=== PATIENT | female | born 1990 | race American Indian/Alaskan Native ===

== ENCOUNTER 2018-10-09 15:23 | Outpatient (CLI) | payer MEDICAID ==
[2018-10-09] MEDS ORDERED: LACTATED RINGERS 500 ML IV ONE (15:44)
[2018-10-09 15:47] VITALS: BP 100/60
[2018-10-09 16:35] LABS: Bacteria,Urine 2+ /HPF (Negative); Bilirubin,Urine NEG (Negative); Blood,Urine LG (Negative); Color,Urine Yellow (Yellow); Mucus,Urine 2+ /HPF; Protein,Urine <15 mg/dL mg/dL (Negative); Urobilinogen,Urine < 2.0 mg/dL (<2.0)
[2018-10-09 16:37] LABS: WBC,Urine > 182.0 /HPF (0.0-6.0)
[2018-10-09] MEDS ORDERED: ceFAZolin 2 GM in NACL 0.9% 100 ML IV ONE (17:30)
== END 2018-10-09 18:02 | disposition home or self-care (01) ==
LOC: TRG 15:23
PROVIDERS: ATTEND Obstetrics & Gynecology
DX: O47.02 False labor before 37 completed weeks of gestation, second trimester (principal); O26.892 Other specified pregnancy related conditions, second trimester; R10.2 Pelvic and perineal pain; Z3A.23 23 weeks gestation of pregnancy
CPT/HCPCS: 59025; 81001; 96365; J0690

== ENCOUNTER 2019-02-10 08:45 | Inpatient (IN) | payer MEDICAID ==
[2019-02-10] MEDS ORDERED: SUBLIMAZE IV PRN (09:54)
[2019-02-10] MEDS ORDERED: MINERAL OIL PO PRN (09:54)
[2019-02-10] MEDS ORDERED: BRETHINE IVP PRN (09:54)
[2019-02-10] MEDS ORDERED: XYLOCAINE 2% INFILTRATI ONE (09:54)
[2019-02-10] MEDS ORDERED: ZOFRAN IV PRN ×2 (09:54→20:12)
[2019-02-10] MEDS ORDERED: BRETHINE SUB-Q PRN (09:54)
[2019-02-10] MEDS ORDERED: PITOCin/NS 30 UNIT/500ML 30 UNITS/500 ML BAG IV SCH (10:00)
[2019-02-10] MEDS ORDERED: PITOCin/NS 20 UNIT/1000ML DRIP 20 UNITS/1,000 ML BAG IV SCH (10:00)
[2019-02-10 10:32] LABS: Hematocrit 30.6 % (30.3-42.9); Hemoglobin 9.9 gm/dl (10.1-14.3); Mean Corpuscular HGB Conc 33 % (30-34); Red Cell Distribution Width 18.7 % (13.2-15.2)
[2019-02-10 10:37] LABS: Mean Corpuscular Volume 68 fl (79-97)
[2019-02-10] MEDS: LACTATED RINGERS 1,000 ML IV SCH ×2 (10:49→13:52)
[2019-02-10] MEDS: STADOL IV PRN ×2 (10:49→13:50)
[2019-02-10 14:44] LABS: Platelet Count 152 K/mm3 (140-440)
--- NOTE | 2019-02-10 17:41 | History and Physical Report ---
History of Present Illness Date of examination: 02/10/19 Date of admission: 02/10/19 08:47 Chief complaint: I'm having contractions History of present illness: Pt is a 28 year old who presents in active labor at 40.5 weeks. Her course has been uncomplicated. Her GBS is negative. 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 Family/Genetic History: none Social history: - Obstetrical History Expected Date of Delivery: 02/04/19 Actual Gestation: 40 Week(s) 6 Day(s) : 6 Para: 3 Spontaneous Abortions: 2 Number of Living Children: 3 Medications and Allergies Allergies Allergy/AdvReac Type Severity Reaction Status Date / Time No Known Allergies Allergy Verified 10/09/18 15:43 Home Medications Medication Instructions Recorded Confirmed Last Taken Type No Known Home Medications [No 02/10/19 02/10/19 Unknown History Reported Home Medications] Active Meds: Active Medications Butorphanol Tartrate (Stadol) 2 mg IV Q2H PRN PRN Reason: Labor Pain Last Admin: 02/10/19 13:50 Dose: 2 mg Documented by: Ephedrine Sulfate (Ephedrine Sulfate) 10 mg IV Q2M PRN PRN Reason: Hypotension Fentanyl (Sublimaze) 100 mcg IV Q2H PRN PRN Reason: Labor Pain Last Admin: 02/10/19 16:48 Dose: 100 mcg Documented by: Oxytocin/Sodium Chloride (Pitocin/Ns 20 Unit/1000ml Drip) 20 units in 1,000 mls @ 125 mls/hr IV DIRECT THEO Oxytocin/Sodium Chloride (Pitocin/Ns 30 Unit/500ml) 30 units in 500 mls @ 1 mls/hr IV TITR THEO; Protocol Lactated Ringer's (Lactated Ringers) 1,000 mls @ 125 mls/hr IV DIRECT THEO Last Admin: 02/10/19 13:52 Dose: 125 mls/hr Documented by: Mineral Oil (Mineral Oil) 30 ml PO QHS PRN PRN Reason: Constipation Ondansetron HCl (Zofran) 4 mg IV Q8H PRN PRN Reason: Nausea And Vomiting Last Admin: 02/10/19 10:50 Dose: 4 mg Documented by: Terbutaline Sulfate (Brethine) 0.25 mg SUB-Q ONCE PRN PRN Reason: Hyperstimulation/Hypertonicity Terbutaline Sulfate (Brethine) 0.25 mg IVP ONCE PRN PRN Reason: Hyperstimulation/Hypertonicity Review of Systems All systems: negative Genitourinary: contractions Rectal Exam: deferred - Vital Signs Vital signs: Vital Signs Pulse BP Pulse Ox 109 H 121/79 99 02/10/19 09:07 02/10/19 09:07 02/10/19 09:07 Temp Pulse Resp BP Pulse Ox 98.7 F 101 H 120/77 96 02/10/19 16:05 02/10/19 17:35 02/10/19 17:35 02/10/19 13:49 - Physical Exam Breasts: Cardiovascular: Regular rate, Normal S1, Normal S2 Lungs: Positive: Clear to auscultation, Normal air movement Abdomen: Positive: normal appearance, soft, normal bowel sounds. Negative: distention, tenderness Vulva: both: normal Vagina: Positive: normal moisture. Negative: discharge Cervix: Negative: lesion, discharge Uterus: Positive: normal size, normal contour Adnexa: both: normal Anus/Rectum: Positive: normal perianal skin, heme negative. Negative: rectal mass, hemorrhoids Extremities: Positive: normal Deep Tendon Reflex Grade: Normal +2 - Obstetrical FHR: auscultation normal Cervical Dilatation: 3 Cervical Effacement Percentage: 90 station: 0 Uterine Contraction Pattern: Regular Uterine Tone Measurement Phase: Contraction Uterine Contraction Intensity: Moderate Results Result Diagrams: 02/10/19 10:15 Abnormal lab results 02/10/19 Range/Units 10:15 Hgb 9.9 L (10.1-14.3) gm/dl MCV 68 L (79-97) fl MCH 22 L (28-32) pg RDW 18.7 H (13.2-15.2) % All other labs normal. Assessment and Plan IUP at 40.6 weeks in active labor. Admit to LABOR. Arom when needed. Pt does not want epidural. Anticipate .
--- NOTE | 2019-02-10 17:46 | Procedure Note ---
OB Delivery Note - Delivery Date of Delivery: 02/10/19 Surgeon: LUCA CHERRY Estimated blood loss: 300cc - Vaginal Delivery presentation: vertex Delivery position: OA Intrapartum events: none Delivery induction: none Delivery monitor: external FHT, external uterine Route of delivery: Delivery placenta: spontaneous Delivery cord: 3 umbilical vessels Delivery laceration: none Anesthesia: none Delivery comments: Viable male delivered over intact perineum in OP presentation. Placed on maternal abdomen. Weight 9 pounds 2 ounces. Apgars 8,9. No lacerations. Pt tolerated procedure well. - A at 1 minute: 8 at 5 minutes: 9 Infant Gender: Male
[2019-02-10] MEDS ORDERED: BENADRYL PO PRN (20:12)
[2019-02-10] MEDS ORDERED: TYLENOL PO PRN (20:12)
[2019-02-10] MEDS ORDERED: TUCKS PAD TP PRN (20:12)
[2019-02-10] MEDS ORDERED: MILK OF MAGNESIA PO PRN (20:12)
[2019-02-10] MEDS ORDERED: TORADOL IV PRN (20:12)
[2019-02-10] MEDS ORDERED: SODIUM CHLORIDE FLUSH SYRINGE 10 ML IV NR (20:12)
[2019-02-10] MEDS ORDERED: DULCOLAX PR PRN (20:12)
[2019-02-10] MEDS ORDERED: PHENERGAN PR PRN (20:12)
[2019-02-10] MEDS ORDERED: LANSINOH TP PRN (20:12)
[2019-02-10] MEDS ORDERED: PHENERGAN PO PRN (20:12)
[2019-02-10] MEDS: IBUPROFEN PO SCH (20:30)
[2019-02-11] MEDS: IBUPROFEN PO SCH ×4 (04:57→17:28)
[2019-02-11 07:34] LABS: Hematocrit 24.1 % (30.3-42.9); Hemoglobin 7.7 gm/dl (10.1-14.3)
[2019-02-11] MEDS: NORCO 5/325 PO PRN ×2 (08:56→15:58)
[2019-02-11] MEDS: PRENATAL VITAMIN PO SCH (10:07)
[2019-02-11] MEDS: COLACE PO SCH ×2 (10:07→22:24)
--- NOTE | 2019-02-11 15:26 | Progress Note ---
Assessment and Plan PPD 1 S/P . DOING WELL. PT ATTEMPTED TO BREASTFEED, THEN STOPPED. PT TO BE DISCHARGED ON TOMORROW. Subjective - Subjective Date of service: 02/11/19 Interval history: Pt is a 28 year old who presents in active labor at 40.5 weeks. Her pren atal course has been uncomplicated. Her GBS is negative. Patient reports: appetite normal, voiding normally, pain well controlled, ambulating normally [place]: doing well Objective - Vital Signs Latest vital signs: Vital Signs Temp Pulse Resp BP Pulse Ox 02/11/19 12:11 98.5 F 99 H 16 107/62 96 02/11/19 07:27 98.8 F 103 H 20 100/56 98 02/11/19 04:54 99.2 F 109 H 18 95/56 97 02/11/19 00:31 97.7 F 86 18 106/66 100 02/10/19 20:30 18 02/10/19 19:37 98.2 F 86 18 107/61 98 02/10/19 18:05 101 H 115/77 02/10/19 18:00 99 H 122/75 02/10/19 17:55 96 H 119/73 02/10/19 17:45 104 H 115/70 02/10/19 17:40 100 H 117/71 02/10/19 17:35 101 H 120/77 02/10/19 17:30 90 121/73 02/10/19 17:25 98 H 116/65 02/10/19 17:20 93 H 124/72 02/10/19 17:15 94 H 119/69 02/10/19 17:10 110 H 123/70 02/10/19 17:05 114 H 122/63 02/10/19 17:03 117 H 135/76 02/10/19 17:00 121 H 132/67 02/10/19 16:55 109 H 116/67 02/10/19 16:50 115 H 110/64 02/10/19 16:46 121 H 118/66 02/10/19 16:41 123 H 94/54 02/10/19 16:05 98.7 F 02/10/19 16:01 125 H 122/80 Intake and Output 02/11/19 02/11/19 02/11/19 06:59 14:59 22:59 Intake Total 480 240 Output Total 1200 Balance -720 240 Intake: IV 0 Left Distal Port Hand 0 Oral 240 Intake, Free Water 480 Output: Urine 1200 Void 1200 Other: Total, Intake Amount 120 Total, Output Amount 500 # Voids Void 1 - Exam Cardiovascular: Present: Regular rate, Normal S1, Normal S2 Lungs: Present: Clear to auscultation, Normal air movement Abdomen: Present: normal appearance, soft Uterus: Present: normal, firm, fundal height below umbilicus Extremities: Present: normal - Labs Labs: Abnormal lab results 02/11/19 Range/Units 05:43 Hgb 7.7 L (10.1-14.3) gm/dl Hct 24.1 L D (30.3-42.9) %
--- NOTE | 2019-02-11 15:37 | Discharge Summary ---
Providers - Providers Date of Admission: 02/10/19 08:47 Date of discharge: 02/12/19 Attending physician: LUCA CHERRY Primary care physician: LUCA CHERRY Hospitalization Reason for admission: active labor Delivery: Laceration: none complications: none Discharge diagnosis: IUP at term delivered [place] baby: male Hospital course: UNREMARKABLE Condition at discharge: Good Disposition: DC-01 TO HOME OR SELFCARE Plan - Discharge Medications Prescriptions: Ferrous Sulfate [Feosol 325 MG tab] 325 mg PO BID #60 tablet Ibuprofen [Motrin] 800 mg PO Q8HR PRN #40 tablet PRN Reason: Pain, Moderate (4-6) - Provider Discharge Summary Activity: routine, no sex for 6 weeks, no heavy lifting 4 weeks, no strenuous exercise Diet: routine Instructions: routine Additional instructions: [] Smoking cessation referral if applicable(refer to patient education folder for contact #) [] Refer to [facility]'s [facility] Booklet Call your doctor immediately for: * Fever > 100.5 * Heavy vaginal bleeding ( >1 pad per hour) * Severe persistent headache * Shortness of breath * Reddened, hot, painful area to leg or breast * Drainage or odor from incision. * Keep incision clean and dry at all times and follow doctor's instructions regarding bathing/showering - Follow up plan Follow up: LUCA CHERRY MD [Primary Care Provider] - 6 Weeks
[2019-02-12] MEDS: IBUPROFEN PO SCH ×4 (00:32→12:25)
[2019-02-12] MEDS: COLACE PO SCH ×2 (09:42→10:00)
[2019-02-12] MEDS: PRENATAL VITAMIN PO SCH (09:42)
[2019-02-12] MEDS: NORCO 5/325 PO PRN (09:43)
[2019-02-12 15:37] VITALS: BP 110/80
== END 2019-02-12 15:30 | disposition home or self-care (01) | DRG 775 ==
LOC: TRG 08:45 → LD 08:46 → OBSVTOIN 08:47 → OB 19:34
PROVIDERS: ADMIT Obstetrics & Gynecology; ATTEND Obstetrics & Gynecology
PROC: 10E0XZZ Delivery of Products of Conception, External Approach (ICD-10-PCS; principal; 2019-02-10)
DX: O80 Encounter for full-term uncomplicated delivery (principal); Z3A.40 40 weeks gestation of pregnancy; Z37.0 Single live birth
CPT/HCPCS: 36415; 85014; 85018; 85027; 86592; 86850; 86900; 86901; G0378; A6250; J0595; J2405; J2590; J3010; J7120

== ENCOUNTER 2021-11-08 20:36 | Inpatient (IN) | payer MEDICAID ==
[2021-11-08] MEDS ORDERED: ePHEDrine SULFATE 50 MG/1 ML INJ IV PRN (22:19)
[2021-11-08] MEDS ORDERED: MINERAL OIL 30 ML ORAL LIQD PO PRN (22:19)
[2021-11-08] MEDS ORDERED: OXYTOCIN 10 UNIT/1 ML INJ IM PRN (22:19)
[2021-11-08] MEDS ORDERED: LIDOCAINE (2%) 20 MG/1 ML VIAL 20 ML MDV INFILTRATI ONE (22:19)
[2021-11-08] MEDS ORDERED: LOPERAMIDE 2 MG CAP PO PRN (22:19)
[2021-11-08] MEDS ORDERED: miSOPROStol 200 MCG TAB PR PRN (22:19)
[2021-11-08] MEDS ORDERED: METHYLERGONOVINE MALEATE 0.2 MG/ML VIAL IM PRN (22:19)
[2021-11-08] MEDS ORDERED: TERBUTALINE 1 MG/1 ML INJ SUB-Q PRN (22:19)
[2021-11-08] MEDS ORDERED: CARBOPROST TROMETHAMINE 250 MCG/1 ML INJ IM PRN (22:19)
[2021-11-08 22:38] LABS: Hematocrit 31.5 % (30.3-42.9); Hemoglobin 10.2 gm/dl (10.1-14.3); Mean Corpuscular HGB Conc 32 % (30-34); Red Blood Count 4.54 M/mm3 (3.65-5.03)
[2021-11-08 22:58] LABS: Mean Corpuscular Volume 69 fl (79-97)
[2021-11-08 22:59] LABS: Platelet Count 126 K/mm3 (140-440)
[2021-11-08] MEDS ORDERED: OXYTOCIN DRIP 30 UNITS/500 ML BAG IV SCH ×2 (23:00)
--- NOTE | 2021-11-09 08:58 | History and Physical Report ---
History of Present Illness Date of examination: 11/09/21 Date of admission: 11/08/21 20:36 Chief complaint: I am here to be induced History of present illness: Patient is a 31-year-old 6 para 4 who presents for induction of labor secondary to postdates with a EDC of 11/03/2021. She is now 40 weeks and 5 days. She has had uncomplicated course. She is GBS negative. 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 Family/Genetic History: none Social history: single - Obstetrical History Expected Date of Delivery: 11/03/21 Actual Gestation: 40 Week(s) 6 Day(s) : 8 Para: 4 Number of Living Children: 4 Medications and Allergies Allergies Allergy/AdvReac Type Severity Reaction Status Date / Time No Known Allergies Allergy Verified 10/09/18 15:43 Home Medications Medication Instructions Recorded Confirmed Last Taken Type Ferrous Sulfate [Feosol 325 MG tab] 325 mg PO BID #60 tablet 02/10/19 Unknown Rx Ibuprofen [Motrin] 800 mg PO Q8HR PRN #40 tablet 02/10/19 Unknown Rx Active Meds: Active Medications Carboprost Tromethamine (Carboprost Tromethamine 250 Mcg/1 Ml Inj) 250 mcg IM ONCE PRN PRN Reason: Uterine Bleeding Ephedrine Sulfate (Ephedrine Sulfate 50 Mg/1 Ml Inj) 10 mg IV Q2M PRN PRN Reason: Hypotension Oxytocin/Sodium Chloride (Pitocin/Ns 30 Unit/500ml) 30 units in 500 mls @ 2 mls/hr IV TITR THEO; Protocol Lactated Ringer's (Lactated Ringers) 1,000 mls @ 125 mls/hr IV DIRECT THEO Oxytocin/Sodium Chloride (Pitocin/Ns 30 Unit/500ml) 30 units in 500 mls @ 40 mls/hr IV TITR THEO; Protocol Loperamide HCl (Loperamide 2 Mg Cap) 2 mg PO ONCE PRN PRN Reason: give with Hemabate Methylergonovine Maleate (Methylergonovine Maleate 0.2 Mg/Ml Vial) 0.2 mg IM ONCE PRN PRN Reason: Uterine Bleeding Mineral Oil (Mineral Oil 30 Ml Oral Liqd) 30 ml PO QHS PRN PRN Reason: Constipation Misoprostol (Misoprostol 200 Mcg Tab) 800 mcg RI ONCE PRN PRN Reason: Uterine Bleeding Oxytocin (Oxytocin 10 Unit/1 Ml Inj) 10 unit IM ONCE PRN PRN Reason: Uterine Bleeding Terbutaline Sulfate (Terbutaline 1 Mg/1 Ml Inj) 0.25 mg SUB-Q ONCE PRN PRN Reason: Hyperstimulation/Hypertonicity Review of Systems All systems: negative Constitutional: weight gain, fatigue Genitourinary: contractions - Vital Signs Vital signs: Vital Signs Pulse Ox 100 11/08/21 20:57 Temp Pulse Resp BP Pulse Ox 89 102/60 100 11/09/21 08:51 11/09/21 08:26 11/09/21 08:51 - Physical Exam Breasts: Cardiovascular: Regular rate, Normal S1, Normal S2 Lungs: Positive: Clear to auscultation, Normal air movement Abdomen: Positive: normal appearance, soft, normal bowel sounds. Negative: distention, tenderness Genitourinary (Female): Positive: normal external genitalia, normal perenium Vulva: both: normal Vagina: Positive: normal moisture. Negative: discharge Cervix: Negative: lesion, discharge Uterus: Positive: normal size, normal contour Adnexa: both: normal Anus/Rectum: Positive: normal perianal skin, heme negative. Negative: rectal mass, hemorrhoids Extremities: Deep Tendon Reflex Grade: Normal +2 - Obstetrical FHR: auscultation normal Cervical Dilatation: 2 Cervical Effacement Percentage: 40 station: -3 Uterine Contraction Pattern: Irregular Uterine Tone Measurement Phase: Contraction Uterine Contraction Intensity: Moderate Results Result Diagrams: 11/08/21 22:11 Abnormal lab results 11/08/21 Range/Units 22:11 MCV 69 L (79-97) fl MCH 22 L (28-32) pg RDW 19.0 H (13.2-15.2) % Plt Count 126 L (140-440) K/mm3 All other labs normal. Assessment and Plan IUP at 40-6/7 weeks here for postdates induction. Admit for labor. AROM when able. Begin Pitocin. Patient does not want epidural. Anticipate .
[2021-11-09] MEDS: LACTATED RINGERS 1,000 ML IV SCH ×2 (09:57→12:25)
[2021-11-09] MEDS ORDERED: SODIUM CHLORIDE 0.9% 500 ML 500 ML IV SCH (12:00)
[2021-11-09] MEDS ORDERED: BUTORPHANOL 2 MG/1 ML INJ IV PRN (12:13)
--- NOTE | 2021-11-09 12:15 | Event Note ---
Date: 11/09/21 Called to see patient by nurse. Nursing called and stated that the patient was bleeding heavily with clots and she was concerned about abruption. There was no evidence of heart rate changes or decelerations. By the time I arrived at the bedside, bleeding had stopped. Pt was 4-5cm/50. Continue with induction of labor.
[2021-11-09] MEDS ORDERED: NALOXONE 2 MG/2 ML INJ IV PRN (14:30)
[2021-11-09] MEDS ORDERED: ePHEDrine SULFATE 50 MG/1 ML INJ IV PRN (14:30)
--- NOTE | 2021-11-09 14:50 | Anesthesia Consultation ---
Anesthesia Consult and Med Hx Date of service: 11/09/21 - Airway Anesthetic Teeth Evaluation: Poor ROM Head & Neck: Adequate Mental/Hyoid Distance: Adequate Mallampati Class: Class II Intubation Access Assessment: Good - Pulmonary Exam CTA: Yes - Cardiac Exam Cardiac Exam: RRR - Pre-Operative Health Status ASA Pre-Surgery Classification: ASA2 Proposed Anesthetic Plan: Epidural - Pulmonary Hx Asthma: Yes (INHALER) COPD: No Hx Pneumonia: No - Cardiovascular System Hx Hypertension: No - Central Nervous System Hx Seizures: No Hx Psychiatric Problems: No - Endocrine Hx Renal Disease: No Hx End Stage Renal Disease: No Hx Hypothyroidism: No Hx Hyperthyroidism: No - Hematic Hx Anemia: No Hx Sickle Cell Disease: No - Other Systems Hx Alcohol Use: No Hx Substance Use: No Hx Obesity: Yes
--- NOTE | 2021-11-09 14:51 | Progress Note ---
Labor Epidural - Labor Epidural Start Time: 14:30 Stop Time: 13:36 Performed by:: CHASE SELF Procedure: Patient is requesting epidural for labor pain. H&P and labs reviewed. Procedure explained, questions answered, consent obtained. Patient placed in sitting position with monitors applied. Timeout performed immediately before start of procedure. Prep/drape in usual sterile fashion. Skin localized 3 mL 1% lidocaine at L[3]-L[4] interspace. 17-gauge Touhy epidural needle advanced to ERENDIRA with saline at [8] cm x 2attempts. No blood/CSF noted via epidural needle. Epidural catheter advanced to [12] cm. Negative aspiration for blood and CSF via catheter, negative response to test dose 3 ml 1.5% lidocaine w/ Epi. Sterile dressing applied followed by tape reinforcement. Patient tolerated procedure well. No immediate complications noted.
[2021-11-09] MEDS ORDERED: fentaNYL-BUPIV 2 MCG/ML-0.125% 200 MCG/100 ML BAG EPIDURAL SCH (15:00)
--- NOTE | 2021-11-09 16:17 | Procedure Note ---
OB Delivery Note - Delivery Date of Delivery: 11/09/21 Surgeon: LUCA CHERRY Estimated blood loss: 200cc - Vaginal Delivery presentation: vertex Delivery position: OP Intrapartum events: bleeding site-undetermine Delivery induction: oxytocin Delivery augmentation: rupture of membranes Delivery monitor: external FHT, external uterine Route of delivery: Delivery placenta: spontaneous Delivery cord: nuchal cord, 3 umbilical vessels Episiotomy: none Delivery laceration: other (vaginal mucosa) Delivery repair: chromic Anesthesia: epidural Delivery comments: Viable male delivered over intact perineum with nuchal cord not fully wrapped. Weight 7 pounds 11 ounces. Apgars 8,9. had spontaneous cry and was placed on maternal abdomen. Placenta delivered spontaneously and intact with 3vc. Small mucosal laceration repaired with 2.o chromic.Excellent hemostasis. Pt tolerated procedure well. - Infant A at 1 minute: 8 at 5 minutes: 9 Infant Gender: Male (7 pounds 11 ounces)
[2021-11-09] MEDS ORDERED: ACETAMINOPHEN 325 MG TAB PO PRN (16:18)
[2021-11-09] MEDS ORDERED: diphenhydrAMINE 25 MG CAP PO PRN (17:00)
[2021-11-09] MEDS ORDERED: OXYTOCIN DRIP 30,000 MILLIUNITS/500 ML BAG IV ONE (17:04)
[2021-11-09] MEDS: HYDROcodone/ACETAMINOPHEN 5-325 MG TAB PO PRN (17:14)
[2021-11-09] MEDS: IBUPROFEN 800 MG TAB PO SCH (17:15)
[2021-11-09] MEDS ORDERED: LANOLIN/ZINC/DIMETHICONE (LANSINOH) 7 GM TP PRN (18:00)
[2021-11-09] MEDS ORDERED: ONDANSETRON 4 MG/2 ML INJ IV PRN (18:00)
[2021-11-09] MEDS ORDERED: PROMETHAZINE 25 MG RECT SUPP PR PRN (18:00)
[2021-11-09] MEDS ORDERED: PROMETHAZINE 25 MG TAB PO PRN (18:00)
[2021-11-09] MEDS: WITCH HAZEL/ GLYCERIN PAD TP PRN (20:15)
[2021-11-09] MEDS: ACETAMINOPHEN 325 MG TAB PO PRN (20:15)
[2021-11-09] MEDS: DOCUSATE SODIUM 100 MG CAP PO SCH (21:50)
[2021-11-09] MEDS ORDERED: MAGNESIUM HYDROXIDE (MOM) ORAL LIQD UDC PO PRN (22:00)
[2021-11-10] MEDS: IBUPROFEN 800 MG TAB PO SCH ×4 (00:02→18:24)
[2021-11-10 08:12] LABS: Hematocrit 25.2 % (30.3-42.9)
[2021-11-10] MEDS: HYDROcodone/ACETAMINOPHEN 5-325 MG TAB PO PRN (08:20)
--- NOTE | 2021-11-10 09:03 | Post Anesthesia Evaluation ---
- Post Anesthesia Evaluation Patient Participated: Yes Airway Patent: Yes Stable Respiratory Function: Yes Nausea/Vomiting: No Temp > 96.8F: Yes Pain Manageable: Yes Adequeate Hydration: Yes Anesthesia Complications: No Block Receding Appropriately: Yes Patient on Ventilator: No
[2021-11-10] MEDS ORDERED: PRENATAL VIT27-FE FUMARATE-FOLIC ACID VIT TAB PO SCH (10:00)
[2021-11-10] MEDS: DOCUSATE SODIUM 100 MG CAP PO SCH ×2 (10:19→21:36)
[2021-11-10] MEDS: PRENATAL VIT27-FE FUMARATE-FOLIC ACID VIT TAB PO SCH (10:19)
[2021-11-11] MEDS: HYDROcodone/ACETAMINOPHEN 5-325 MG TAB PO PRN (05:21)
[2021-11-11] MEDS ORDERED: BENZOCAINE/MENTHOL 20/0.5% TOP SPRAY 56 GM TP PRN (07:00)
[2021-11-11] MEDS: PRENATAL VIT27-FE FUMARATE-FOLIC ACID VIT TAB PO SCH (10:30)
[2021-11-11] MEDS: DOCUSATE SODIUM 100 MG CAP PO SCH (10:30)
[2021-11-11] MEDS: WITCH HAZEL/ GLYCERIN PAD TP PRN (10:30)
[2021-11-11] MEDS: ACETAMINOPHEN 325 MG TAB PO PRN (10:43)
--- NOTE | 2021-11-11 11:52 | Progress Note ---
Assessment and Plan PPD 2 s/p . Pt had 2 episodes on yesterday where she passed a medium sized clot. Pt has had no further episodes of heavy bleeding since that time. Pt to be discharged on today Subjective - Subjective Date of service: 11/11/21 Interval history: Patient is a 31-year-old 6 para 4 who presents for induction of labor secondary to postdates with a EDC of 11/03/2021. She is now 40 weeks and 5 days. She has had uncomplicated course. She is GBS negative. 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 Patient reports: appetite normal, voiding normally, pain well controlled, ambulating normally : doing well Objective - Vital Signs Latest vital signs: Vital Signs Temp Pulse Resp BP BP Pulse Ox Pulse Ox 11/11/21 10:10 98 11/11/21 08:28 79 22 103/62 11/11/21 05:21 16 11/11/21 00:06 98.6 F 98 H 18 101/64 99 11/10/21 18:18 97.9 F 98 H 18 95/57 98 11/10/21 12:41 97.6 F 94 H 18 95/50 97 Intake and Output 11/10/21 11/11/21 11/11/21 22:59 06:59 14:59 Intake Total 240 480 Balance 240 480 Intake: Intake, Free Water 240 480 Other: # Voids Void 1 2 - Exam Breasts: Present: deferred Cardiovascular: Present: Regular rate, Normal S1, Normal S2 Lungs: Present: Clear to auscultation, Normal air movement Abdomen: Present: normal appearance, soft, normal bowel sounds Uterus: Present: normal, firm Extremities: Present: normal
[2021-11-11] MEDS: IBUPROFEN 800 MG TAB PO SCH (12:00)
--- NOTE | 2021-11-11 12:12 | Discharge Summary ---
Providers - Providers Date of Admission: 11/08/21 20:36 Date of discharge: 11/11/21 Attending physician: LUCA CHERRY Primary care physician: LUCA CHERRY Hospitalization Reason for admission: induction of labor Delivery: Laceration: other (vaginal mucosa) Discharge diagnosis: IUP at term delivered baby: male Condition at discharge: Good Disposition: 01 HOME / SELF CARE / HOMELESS Plan - Discharge Medications Prescriptions: Ferrous Sulfate [Feosol 325 MG tab] 325 mg PO BID #60 tablet Ibuprofen [Motrin 800 MG tab] 800 mg PO Q8HR PRN #40 tablet PRN Reason: Pain, Moderate (4-6) Ibuprofen [Motrin 800 MG tab] 800 mg PO Q6H #30 tablet - Provider Discharge Summary Activity: routine, no sex for 6 weeks, no heavy lifting 4 weeks, no strenuous exercise Diet: routine Instructions: routine Additional instructions: [] Smoking cessation referral if applicable(refer to patient education folder for contact #) [] Refer to [facility]'s [facility] Booklet Call your doctor immediately for: * Fever > 100.5 * Heavy vaginal bleeding ( >1 pad per hour) * Severe persistent headache * Shortness of breath * Reddened, hot, painful area to leg or breast * Drainage or odor from incision. * Keep incision clean and dry at all times and follow doctor's instructions regarding bathing/showering - Follow up plan Follow up: LUCA CHERRY MD [Primary Care Provider] - 14 Days
[2021-11-11 15:59] VITALS: BP 119/75
== END 2021-11-11 16:25 | disposition home or self-care (01) | DRG 774 ==
LOC: LD 20:36 → OB 11-09 18:12
PROVIDERS: ADMIT Obstetrics & Gynecology; ATTEND Obstetrics & Gynecology
PROC: 10E0XZZ Delivery of Products of Conception, External Approach (ICD-10-PCS; principal; 2021-11-09)
PROC: 3E033VJ Introduction of Other Hormone into Peripheral Vein, Percutaneous Approach (ICD-10-PCS; 2021-11-09)
PROC: 3E0R3BZ Introduction of Anesthetic Agent into Spinal Canal, Percutaneous Approach (ICD-10-PCS; 2021-11-09)
PROC: 00HU33Z Insertion of Infusion Device into Spinal Canal, Percutaneous Approach (ICD-10-PCS; 2021-11-09)
PROC: 0HQ9XZZ Repair Perineum Skin, External Approach (ICD-10-PCS; 2021-11-09)
PROC: 10907ZC Drainage of Amniotic Fluid, Therapeutic from Products of Conception, Via Natural or Artificial Opening (ICD-10-PCS; 2021-11-09)
DX: O48.0 Post-term pregnancy (principal); O98.32 Other infections with a predominantly sexual mode of transmission complicating childbirth; A60.00 Herpesviral infection of urogenital system, unspecified; O99.52 Diseases of the respiratory system complicating childbirth; J45.909 Unspecified asthma, uncomplicated; O69.81X0 Labor and delivery complicated by cord around neck, without compression, not applicable or unspecified; O70.0 First degree perineal laceration during delivery; Z20.822 Contact with and (suspected) exposure to COVID-19; Z3A.40 40 weeks gestation of pregnancy; Z37.0 Single live birth
CPT/HCPCS: 36415; 85014; 85018; 85027; 86850; 86900; 86901; 86920; G0378; J0595; J2590; J7120; U0003